=== PATIENT | male | born 1990 | race Caucasian/White ===

== ENCOUNTER 2021-12-02 13:48 | Emergency (ER) | payer OTHER, SELFPAY ==
[2021-12-02 13:57] VITALS: BP 149/83; PULSE 65; RESP 16; TEMP 36.7; O2SAT 100
--- NOTE | 2021-12-02 14:26 | ED.SKABFB ---
HPI - Skin/Abscess/Foreign Bdy General Chief complaint: Skin/Abscess/Foreign Body Stated complaint: bump on chin Time Seen by Provider: 12/02/21 14:10 Source: patient, RN notes reviewed and old records reviewed Mode of arrival: ambulatory Limitations: no limitations History of Present Illness HPI narrative: 31 year old male who presents to [facility] care with one week duration of noted raised bump to crease above chin. Patient does have banks with some irritation noted to skin under area, denies any pain or any itching. Patient states that he has been using his usual facial soap and he has been putting Cetaphil lotion to skin area as moisturizer. Patient denies any new shampoo, no new foods, medications, or any new soaps. MD complaint: rash and lesion Onset (ago): week(s) (1) Location: face (chin) Severity: mild Related Data Allergies Allergy/AdvReac Type Severity Reaction Status Date / Time No Known Allergies Allergy Verified 12/02/21 14:18 Review of Systems Review of Systems: CONSTITUTIONAL: Denies fever, chills, or sweats. EYES: Denies visual changes, redness, or discharge. ENT: Denies rhinorrhea, congestion, sore throat, or otalgia. CARDIOVASCULAR: Denies chest pain, palpitations, or edema. RESPIRATORY: Denies cough or dyspnea. GASTROINTESTINAL: Denies abdominal pain, nausea, vomiting, or diarrhea. GENITOURINARY: Denies dysuria or hematuria. SKIN:raised small bump type area to skin under chin with some surrounding redness of skin, denies any itching, MUSCULOSKELETAL: Denies back pain, joint pain, or myalgia. NEUROLOGIC: Denies headache, numbness, or weakness. PSYCHIATRIC: Denies anxiety or depression. All systems reviewed & are unremarkable except as noted in HPI and below PMFSH Past Medical History Medical History (Updated 12/03/21 @ 00:00 by Background Daemon) No significant past medical history Surgical History Surgical History (Updated 12/02/21 @ 14:38 by Ophelia Griffin NP) No history of previous surgery Social History Social History (Updated 12/02/21 @ 14:35 by Ophelia Griffin NP) Smoking status: Never smoker Comments At time of signature, agree with nursing past medical, surgical, social and family history. There is no relevant family history pertinent to the presenting complaint Exam Narrative: GENERAL: Well-appearing, well-nourished, and in no acute distress. HEAD: Normocephalic, atraumatic. EYES: PERRLA and EOMI. ENT: Nares clear, no rhinorrhea or epistaxis. Mucous membranes moist.TM's normal with good light reflex, throat pink with no lesions or exudates or tonsil swelling. NECK: Supple.no lymphadenopathy CHEST: Clear to auscultation. No respiratory distress.no cough or any shortness of breath, SAO2 100% on room air. HEART: Regular rate and rhythm. No murmur heard. Normal peripheral pulses. ABDOMEN: Soft, nontender, nondistended, normal active bowel sounds. EXTREMITIES: Normal range of motion. No edema. SKIN: Warm, dry, small 0,25cm raised lesion with some surrounding redness of skin no itching, no drainage noted. NEURO: No focal deficits. Alert and oriented x3. Course Course Level of Care: Express Care Visit Vital Signs Vital signs: Vital Signs Temperature 36.7 C 12/02/21 13:57 Pulse Rate 65 12/02/21 13:57 Respiratory Rate 16 12/02/21 13:57 Blood Pressure 149/83 H 12/02/21 13:57 Pulse Oximetry 100 12/02/21 13:57 Temperature 36.7 C 12/02/21 13:57 Pulse Rate 65 12/02/21 13:57 Respiratory Rate 16 12/02/21 13:57 Blood Pressure 149/83 H 12/02/21 13:57 Pulse Oximetry 100 12/02/21 13:57 MDM - Skin/Abscess/Foreign Bdy Differential Diagnosis Differential diagnosis: Likely cellulitis, eczema, contact dermatitis and other (folliculitis, ) Medical Records Attestation: I reviewed the patient's medical records. Critical Care Time Critical Care Time Critical Care Time: No Discharge Plan Discharge Clinical Impression: Folliculitis Patient Dispo
== END 2021-12-02 14:49 | disposition home or self-care (01) ==
PROVIDERS: Emergency Provider Registered Nurse
DX: L73.9 Follicular disorder, unspecified (principal)
CPT/HCPCS: 99213; G0463